=== PATIENT | female | born 1940 | race Caucasian/White ===

== ENCOUNTER 2016-12-19 15:39 | Emergency (ER) | payer OTHER ==
--- NOTE | 2016-12-19 16:03 | CPEKG ---
Heart Rate: 61 RR Interval: 984 P-R Interval: 184 QRSD Interval: 86 QT Interval: 452 QTC Interval: 456 P [place]: 73 QRS [place]: 5 T Wave [place]: 52 EKG Severity - NORMAL ECG - EKG Impression: SINUS RHYTHM Electronically Signed By: Malvin Carrero 19-Dec-2016 23:37:29
--- NOTE | 2016-12-19 16:03 | CPEKG ---
Heart Rate: 61 RR Interval: 984 P-R Interval: 184 QRSD Interval: 86 QT Interval: 452 QTC Interval: 456 P [place]: 73 QRS [place]: 5 T Wave [place]: 52 EKG Severity - NORMAL ECG - EKG Impression: SINUS RHYTHM Electronically Signed By: Malvin Carrero 19-Dec-2016 23:37:29
--- NOTE | 2016-12-19 16:26 | EDPHY ---
H & P Stated Complaint: Mechanical fall. dizzy, lightheaded. Time Seen by Provider: 12/19/16 16:22 HPI/ROS: HPI: This is a 76-year-old female who presents with Chief Complaint: Fall Location: Nose, left wrist, right knee Quality: Injury Duration: 1 hour prior to arrival Signs and Symptoms: No LOC, no neck pain, no headache, No bleeding, no radiation, no numbness, no weakness, no tingling, no incontinence, no decreased range of motion Timing: Sudden Severity: [id number] Context: Patient was walking out of [place] and her shoe got caught up on the cement and she fell directly forward. She complains of bleeding in her nose as well as a scratch on the bridge of her nose, left wrist pain worse with movement nonradiating mild in nature, right knee discomfort that is mild, nonradiating. She reports that she has chronic dizziness related to hypoxia but did not have dizziness prior to the episode. She denies any fever/chills/ cough/abdominal pain/chest pain/nausea/vomiting. She takes baby aspirin daily. Reports that she is up-to-date on her tetanus booster. Right hand dominant. Modifying Factors: None Comment: ROS: see HPI Constitutional: No fever, no chills, no weight loss Eyes: No blurred vision Respiratory: No shortness of breath, no cough Cardiovascular: No chest pain Gastrointestinal: No nausea, no vomiting no diarrhea Genitourinary: No dysuria Extremities: No myalgias Neurologic: No weakness, no numbness Skin: No rashes Hematologic: No bruising, no bleeding MEDICAL/SURGICAL/SOCIAL HISTORY: Medical history: -2002. HTN. Hypoxia; wear supplemental oxygen 2-3 L continuously Surgical history: Denies Social history: Retired. CONSTITUTIONAL: Pleasant elderly white female wearing nasal cannula, awake and alert, no obvious distress HEENT: Atraumatic and normocephalic, PERRL, EOMI. no globe entrapment, no raccoon eyes. no San signs. Tympanic membranes clear. No tympanic membrane rupture. Nares patent; no septal hematoma; small amount of dried blood noted an interior bilateral nares; small superficial abrasion noted to bridge of nose ; no deformity but tender to palpation over the area. Oropharynx clear, no exudate and moist pink mucosa. No malocclusion. no dental trauma. Airway patent. No lymphadenopathy. NECK: supple, no midline tenderness, flexion 45 degrees, extension 45 degrees, right and left lateral flexion 45 degrees. No meningismus. Cardiovascular: Normal S1/S2, regular rate, regular rhythm, without murmur rub or gallop. PULMONARY/CHEST: Symmetrical and nontender. no crepitus. Clear to auscultation bilaterally. Good air movement. No accessory muscle usage. ABDOMEN: Soft, nondistended, nontender, no ecchymosis, no rebound, no guarding , no peritoneal signs, no masses or organomegaly. No CVAT. PELVIC: no pain with rocking; bilateral hips flexion 125 degrees, extension 30 degrees, with no pain internal rotation and no pain external rotation. BACK: No midline tenderness, no paraspinous spasm, deep tendon reflexes 2/2, no pain with straight leg raise EXTREMITIES: 2/2 pulses, LEFT WRIST: Extension to 70, flexion to 80, radial deviation to 20 degree, ulnar deviation to 30, no scaphoid tenderness, no tenderness over ulnar styloid, no tenderness over radial styloid. Right KNEE: Mild effusion, moderate crepitus with extension, mild medial and lateral joint line tenderness, full extension to 180, flexion to 120, no pain with varus and valgus exam. no deformities, no clubbing, no cyanosis or edema. NEUROLOGICAL: no focal neuro deficits. GCS 15. SKIN: Warm and dry, no erythema. no rash. Good capillary refill. Source: Patient Exam Limitations: No limitations - Personal History Current Tetanus Diphtheria and Acellular Pertussis (TDAP): Yes - Medical/Surgical History Hx Asthma: No Hx Chronic Respiratory Disease: Yes Hx Diabetes: No Hx Cardiac Disease: Yes Hx Renal Disease: No Hx Cirrhosis: No Hx Alcoholism: No Hx HIV/AIDS: No Hx Splenectomy or Spleen Trauma: No Other PMH: -2002. HTN. Hypoxia. - Social History Smoking Status: Former smoker Constitutional: Initial Vital Signs Heart Rate 66 12/19/16 15:48 Respiratory Rate 18 12/19/16 15:48 Blood Pressure 147/84 H 12/19/16 15:48 O2 Sat (%) 95 12/19/16 15:48 O2 Delivery Mode Nasal Cannula O2 (L/minute) 3 Allergies/Adverse Reactions: No Known Allergies Allergy (Unverified 12/19/16 15:50) Home Medications: Medication Instructions Recorded Aspirin 81mg (*) 12/19/16 Cephalexin [Keflex (*)] 500 mg PO BID #14 cap 12/19/16 Medical Decision Making - Diagnostics Imaging Results: Imaging Impressions Face CT 12/19/16 16:20 Impression: 1. Nondisplaced nasal bone fracture. 2. Carotid atherosclerosis. 3. Additional findings as above. Findings discussed with Concepcion Andrade PA-C, 12/19/[address] 12/19/16 16:20 Impression: 1. Nondisplaced nasal bone fracture. 2. Diffuse cerebral atrophy with periventricular and subcortical low attenuation consistent with chronic microvascular ischemic gliosis. 3. Additional findings as above. Findings discussed with Concepcion Andrade 12/19/2016 at 17:12. Knee X-Ray 12/19/16 16:20 Impression: Pre patellar soft tissue swelling. Wrist X-Ray 12/19/16 16:21 Impression: 1. Equivocal nondisplaced hamate fracture. 2. No distal radius or navicular fracture. Procedures: 12 lead EKG: Indication: Fall, dizziness Rhythm: Normal sinus rhythm [place]: Normal Intervals: Normal QRS: Normal ST segments: Normal INTERPRETATION: Normal EKG The 12 lead EKG was interpreted by myself. Procedure: Splint placement. A left ulnar gutter splint was applied the Emergency Room residential gas heat technician. After application of the splint I returned and re-examined the patient. The splint was adequately immobilizing the joint and distal to the splint the patient's circulation and sensation was intact. ED Course/Re-evaluation: Head CT scan, maxillofacial CT scan, right knee x-ray, left wrist x-ray, labs, urinalysis, EKG ordered Fall accidental in nature Tetanus up-to-date Nasal bridge abrasion cleaned with mild soap and water and bacitracin applied 1650: Labs reviewed and grossly unremarkable. 1715: Called by radiologist who advised head CT scan shows no acute intracranial process. CT maxillofacial scan shows nondisplaced nasal fracture. No indication for reduction. Wrist x-ray my read via PAC shows questionable nondisplaced hamate fracture; placed in ulnar gutter splint. Knee x-ray shows mild effusion, no fracture; Nhan wrap Urinalysis shows infection; sent for urine culture; Keflex no signs of sepsis/pyelonephritis/acute kidney injury Differential Diagnosis: Dizziness including but not limited to peripheral and central causes of vertigo , orthostatic causes including dehydration, and blood loss. Head injury including but not limited to concussion, skull fracture, intraparenchymal contusion, subarachnoid, subdural and epidural hematoma. - Data Points Laboratory Results: Laboratory Results 12/19/16 15:53 12/19/16 15:53 12/19/16 12/19/16 12/19/16 18:00 15:56 15:53 WBC RBC Hgb Hct MCV MCH MCHC RDW Plt Count MPV Neut % (Auto) Lymph % (Auto) [place] % (Auto) Eos % (Auto) Baso % (Auto) Nucleat RBC Rel Count Absolute Neuts (auto) Absolute Lymphs (auto) Absolute Monos (auto) Absolute Eos (auto) Absolute Basos (auto) Absolute Nucleated RBC Immature Gran % Immature Gran # PT 15.2 SEC H SEC (12.0-15.0) INR 1.20 H (0.83-1.16) APTT 31.4 SEC SEC (23.0-38.0) Sodium 142 mEq/L mEq/L (134-144) Potassium 4.4 mEq/L mEq/L (3.5-5.2) Chloride 100 mEq/L mEq/L (97-110) Carbon Dioxide 27 mEq/l mEq/l (22-31) Anion Gap 15 mEq/L mEq/L (8-16) BUN 8 mg/dL mg/dL (7-23) Creatinine 0.7 mg/dL mg/dL (0.6-1.0) Estimated GFR > 60 Glucose 89 mg/dL mg/dL (70-100) Calcium 8.9 mg/dL mg/dL (8.5-10.4) Troponin I < 0.012 ng/mL ng/mL (0.000-0.034) Urine Color YELLOW Urine Appearance CLEAR Urine pH 7.0 (5.0-7.5) Ur Specific [place] 1.005 (1.002-1.030) Urine Protein NEGATIVE (NEGATIVE) Urine Ketones NEGATIVE (NEGATIVE) Urine Blood 1+ H (NEGATIVE) Urine Nitrate NEGATIVE (NEGATIVE) Urine Bilirubin NEGATIVE (NEGATIVE) Urine Urobilinogen NEGATIVE EU EU (0.2-1.0) Ur Leukocyte Esterase 2+ H (NEGATIVE) Urine RBC 1-3 /hpf /hpf (0-3) Urine WBC 10-15 /hpf H /hpf (0-3) Ur Epithelial Cells TRACE /lpf /lpf (NONE-1+) Urine Bacteria TRACE /hpf H /hpf (NONE SEEN) Urine Mucus TRACE /lpf /lpf (NONE-1+) Urine Glucose NEGATIVE (NEGATIVE) 12/19/16 15:53 WBC 8.98 10^3/uL 10^3/uL (3.80-9.50) RBC 4.40 10^6/uL 10^6/uL (4.18-5.33) Hgb 12.4 g/dL L g/dL (12.6-16.3) Hct 37.6 % L % (38.0-47.0) MCV 85.5 fL fL (81.5-99.8) MCH 28.2 pg pg (27.9-34.1) MCHC 33.0 g/dL g/dL (32.4-36.7) RDW 14.8 % % (11.5-15.2) Plt Count 193 10^3/uL 10^3/uL (150-400) MPV 10.8 fL fL (8.7-11.7) Neut % (Auto) 59.1 % % (39.3-74.2) Lymph % (Auto) 30.7 % % (15.0-45.0) [place] % (Auto) 7.3 % % (4.5-13.0) Eos % (Auto) 2.2 % % (0.6-7.6) Baso % (Auto) 0.4 % % (0.3-1.7) Nucleat RBC Rel Count 0.0 % % (0.0-0.2) Absolute Neuts (auto) 5.29 10^3/uL 10^3/uL (1.70-6.50) Absolute Lymphs (auto) 2.76 10^3/uL 10^3/uL (1.00-3.00) Absolute Monos (auto) 0.66 10^3/uL 10^3/uL (0.30-0.80) Absolute Eos (auto) 0.20 10^3/uL 10^3/uL (0.03-0.40) Absolute Basos (auto) 0.04 10^3/uL 10^3/uL (0.02-0.10) Absolute Nucleated RBC 0.00 10^3/uL 10^3/uL (0-0.01) Immature Gran % 0.3 % % (0.0-1.1) Immature Gran # 0.03 10^3/uL 10^3/uL (0.00-0.10) PT INR APTT Sodium Potassium Chloride Carbon Dioxide Anion Gap BUN Creatinine Estimated GFR Glucose Calcium Troponin I Urine Color Urine Appearance Urine pH Ur Specific [place] Urine Protein Urine Ketones Urine Blood Urine Nitrate Urine Bilirubin Urine Urobilinogen Ur Leukocyte Esterase Urine RBC Urine WBC Ur Epithelial Cells Urine Bacteria Urine Mucus Urine Glucose Departure - Departure Disposition: Home, Routine, Self-Care Clinical Impression: Lower urinary tract infection, Effusion of right knee Nasal bone fracture Qualifiers: Encounter type: initial encounter Fracture type: closed Qualified Code(s): S02.2XXA - Fracture of nasal bones, initial encounter for closed fracture Accidental fall Qualifiers: Encounter type: initial encounter Qualified Code(s): W19.XXXA - Unspecified fall, initial encounter Left hand fracture Qualifiers: Encounter type: initial encounter Fracture type: closed Qualified Code(s): S62.92XA - Unspecified fracture of left wrist and hand, initial encounter for closed fracture Condition: Good Instructions: Nasal Fracture (ED), Hand Fracture (ED), Urinary Tract Infection in Women (ED) Additional Instructions: Imaging today shows you have nondisplaced nasal fracture and nondisplaced fracture of one of the small bones in your hand. Wear splint continuously and keep dry until seen by Orthopedics for follow-up. You may apply an Nhan wrap on your right knee for comfort. Please apply ice to your nose for 20-30 minutes at a time 2 to 3 times per day for the next 1-2 days. Avoid blowing your nose, physical contact for the next several weeks until fully healed. Please follow-up with ENT and orthopedics in the next 7-10 days. Take all antibiotics as directed for urinary tract infection. Referrals: Efren Wallace MD [Medical Doctor] - As per Instructions Eran Mckeon MD [Medical Doctor] - As per Instructions Prescriptions: Cephalexin [Keflex (*)] 500 mg PO BID #14 cap
[2016-12-19 16:27] LABS: PLATELET COUNT 193 10^3/uL (150-400)
[2016-12-19 18:38] LABS: INR 1.2 (0.83-1.16); PROTIME(PATIENT) 15.2 SEC (12.0-15.0)
[2016-12-19] MEDS ORDERED: CEPHALEXIN 500 MG CAP PO ONE (18:54)
[2016-12-19 19:22] VITALS: BP 144/66; PULSE 61; RESP 16; O2SAT 92
== END 2016-12-19 20:13 | disposition home or self-care (01) ==
LOC: EDUNIT#
DX: S62.92XA Unspecified fracture of left hand, initial encounter for closed fracture (principal); S02.2XXA Fracture of nasal bones, initial encounter for closed fracture; S80.01XA Contusion of right knee, initial encounter; N39.0 Urinary tract infection, site not specified; B96.89 Other specified bacterial agents as the cause of diseases classified elsewhere; I10 Essential (primary) hypertension; I25.2 Old myocardial infarction; Z79.82 Long term (current) use of aspirin; Z79.84 Long term (current) use of oral hypoglycemic drugs; W01.198A Fall on same level from slipping, tripping and stumbling with subsequent striking against other object, initial encounter; Y99.8 Other external cause status; Y93.01 Activity, walking, marching and hiking